=== PATIENT | female | born 2000 | race Caucasian/White ===

== ENCOUNTER → 2019-11-24 | Outpatient (CLI) | payer OTHER | LOC: COL.RAD 11-05 12:00 | DX: Z00.00 Encounter for general adult medical examination without abnormal findings (principal); N91.2 Amenorrhea, unspecified ==

== ENCOUNTER → 2020-01-18 | Outpatient (CLI) | payer OTHER | LOC: ZCOL.LAB 13:01 | DX: Z20.828 Contact with and (suspected) exposure to other viral communicable diseases (principal) ==

== ENCOUNTER 2023-04-25 11:06 | Day surgery (SDC) | payer BC ==
[~2023-04-25] VITALS: Ht 170.2 cm; Wt 135.3 kg
[2023-04-25] VITALS (8 sets, daily range): BP systolic 126–144; BP diastolic 68–82; PULSE 65–102; TEMP 98–99.3
[2023-04-25] MEDS ORDERED: PRISTIQ100 MG PO (12:20)
[2023-04-25] MEDS ORDERED: CRANBERRY500 M3 PO (12:20)
[2023-04-25] MEDS ORDERED: ZYRTEC 10MG10 MG PO (12:21)
[2023-04-25] MEDS ORDERED: ONE-A-DAY WOMEN1 TAB PO (12:22)
--- NOTE | 2023-04-25 16:05 | NUR ---
PT BROUGHT TO FLOOR BY PACU. REPORT RECEIVED AND VITAL SIGNS STABLE AT THIS TIME. PATIENT SETTLED INTO ROOM.
--- NOTE | 2023-04-25 19:00 | NUR ---
PT O2 SAT STABLE AT 99% ON 3L VIA NC. OXYGEN DC'D. PTS O2 STATS REMAIN STABLE ABOVE 96%.
[2023-04-26] VITALS: BP 122/58; PULSE 100; TEMP 98.7
[2023-04-26 04:05] VITALS: BP 118/53; PULSE 83; TEMP 98.6
[2023-04-26 08:00] VITALS: BP 112/61; PULSE 84; TEMP 98.1
--- NOTE | 2023-04-26 10:29 | NUR ---
Initial visit; Patient and her partner thanked [employer]er for offering comfort, encouragement and God bless to patient who at such a young age had a hysterectomy. [employer]er wished her well.
== END 2023-04-26 10:20 | disposition home or self-care (01) ==
LOC: SDCO 11:06 → OB 16:00 → SDCO 04-26 10:20
DX: N83.8 Other noninflammatory disorders of ovary, fallopian tube and broad ligament (principal); E66.01 Morbid (severe) obesity due to excess calories
CPT/HCPCS: OP; A4314; J0690; J1100; J1885; J2405; J2704; J2710; J3010; J7120